=== PATIENT | male | born 2000 | race Caucasian/White ===

== ENCOUNTER 2020-07-29 13:13 | Outpatient (CLI) | payer BC ==
--- NOTE | 2020-07-29 14:14 | RAD ---
LUMBAR SPINE THREE VIEW: 07/29/20 HISTORY: Low back pain. COMPARISON: None. 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 SI joints are unremar kable. No acute fracture or malalignment. No significant listhesis. Minimal L5-S1 degenerative space height loss. 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 This can be the source of chronic pain. POS: [facility]
== END 2020-07-29 13:14 | disposition home or self-care (01) ==
LOC: SCSRAD 13:13
PROVIDERS: ATTEND General Practice
DX: M54.17 Radiculopathy, lumbosacral region (principal)
CPT/HCPCS: 72100

== ENCOUNTER 2020-08-28 06:24 | Day surgery (SDC) | payer BC ==
[2020-08-27 12:37] VITALS: BMI 26.8
[2020-08-28] MEDS ORDERED: EPINEPHrine 1 MG/ML AMP ONE (06:42)
[2020-08-28] MEDS ORDERED: Thrombin 5000 UNITS/5 ML VIAL ONE (06:42)
[2020-08-28] MEDS ORDERED: Bupivacaine PF 0.5% 30 ML VIAL ONE (06:42)
[2020-08-28] MEDS ORDERED: Fentanyl 250 MCG/5 ML VIAL ONE (07:35)
[2020-08-28] MEDS ORDERED: Ondansetron PF 4 MG/2 ML Vial ONE (09:15)
[2020-08-28] MEDS ORDERED: Rocuronium Bromide 10 MG/ML (10ML VIAL) ONE (09:15)
[2020-08-28] MEDS ORDERED: PROPOFOL 200 MG/20 ML VIAL ONE (09:15)
[2020-08-28] MEDS ORDERED: Lidocaine 1% PF 5 ML VIAL ONE (09:15)
[2020-08-28] MEDS ORDERED: Dexamethasone 20 MG/5 ML VIAL ONE (09:15)
[2020-08-28] MEDS ORDERED: Ketorolac Tromethamine 30 MG/ML VIAL ONE (09:15)
[2020-08-28] MEDS ORDERED: Glycopyrrolate 0.2 MG/ML 5 ML SYRINGE ONE (09:15)
--- NOTE | 2020-08-28 09:20 | OP ---
DATE OF PROCEDURE: 08/28/2020 [employer] ARCHITECT: Heraclio Lemon PA-C INDICATION: Pain. DIAGNOSIS: Lumbar radiculopathy. PROCEDURE PERFORMED: L5 diskectomy. ANESTHESIA: General. DESCRIPTION OF PROCEDURE: The patient was brought into the operating room and placed under general anesthesia. He was flipped from the supine to prone position on the operating room table. A linear incision was planned over the L5-S1 segment. After prepping and draping and after an appropriate preoperative pause, the incision was created. The soft tissues were swept away from midline on the right. A self-retaining retractor was placed. 2, 3, and 4 mm Kerrisons were used to perform hemilaminectomy along the inferior aspect of L5 and superior aspect of S1. The yellow ligament in this region was removed. The descending S1 nerve root was identified and mobilized medially with a nerve root retractor. A large predominantly calcified disk was identified. An annulotomy was performed in the disk space for soft disk as well as some of the hard calcified disk was removed using Kerrisons. Fairly extensive amount of disk material was removed in order to decompress the disk space on the right greater than the left. After completing the decompression, the wound was irrigated. Hemostasis was maintained throughout. The wound was then closed in anatomic layers, and a pressure dressing was applied. There were no known procedural complications. Job ID: [id number]
[2020-08-28] MEDS ORDERED: Meperidine HCl/PF 25 MG/ML VIAL ONE (09:58)
[2020-08-28] MEDS ORDERED: HYDROcodone/Acetaminophen 5/325 mg Tablet ONE (12:03)
== END 2020-08-28 12:40 | disposition home or self-care (01) ==
LOC: SDC 06:24
PROVIDERS: ATTEND Neurological Surgery
PROC: 00NY0ZZ Release Lumbar Spinal Cord, Open Approach (ICD-10-PCS; principal; 2020-08-28)
DX: M51.16 Intervertebral disc disorders with radiculopathy, lumbar region (principal)
CPT/HCPCS: 76000; J0171; J0690; J2175; J3010; S0020